=== PATIENT | male | born 1985 | race Caucasian/White ===

== ENCOUNTER 2021-02-24 04:29 | Emergency (ER) | payer MEDICAID ==
[~2021-02-24] VITALS: Ht 170.2 cm; Wt 69.0 kg
[2021-02-24] MEDS ORDERED: KETOROLAC 60MG/2ML VIAL IM ONE (05:00)
[2021-02-24 06:44] LABS: BASOPHILS % 0.8 % (0.0-2.0); EOSINOPHILS % 1.2 % (0.0-5.0); HEMATOCRIT. 43.1 % (42.0-52.0); HEMOGLOBIN. 14.5 g/dL (14.0-18.0); LYMPHOCYTES % 34.4 % (20.0-50.0); MEAN CORPUSCULAR HEMOGLOBIN 31.9 pg (28.0-32.0); MEAN CORPUSCULAR VOLUME 94.8 fL (80.0-94.0); MEAN PLATELET VOLUME 7.7 fl (7.4-10.4); NEUTROPHILS % 49.6 % (40.0-76.0); PLATELET 260 x1000/uL (130-400); RED BLOOD CELL COUNT 4.55 mill/uL (4.7-6.1); RED CELL DISTRIBUTION WIDTH 13.3 % (11.6-14.6)
[2021-02-24 06:47] LABS: CHLORIDE 106 mEq/L (98-107)
[2021-02-24 09:14] VITALS: BP 110/78
== END 2021-02-24 09:15 | disposition home or self-care (01) ==
LOC: ER 04:29
DX: R51.9 Headache, unspecified (principal); E78.00 Pure hypercholesterolemia, unspecified; Z98.890 Other specified postprocedural states
CPT/HCPCS: 36415; 70450; 80053; 85025; 96372; 99284; J1885

== ENCOUNTER 2025-03-07 03:04 | Emergency (ER) | payer MEDICAID ==
[~2025-03-07] VITALS: Ht 162.6 cm; Wt 60.0 kg
[2025-03-07 03:07] VITALS: BP 158/90; PULSE 98; RESP 16; TEMP 36.4; O2SAT 100
== END 2025-03-07 06:20 | disposition left against medical advice (07) ==
LOC: ER 03:04
DX: F41.9 Anxiety disorder, unspecified (principal); Z53.21 Procedure and treatment not carried out due to patient leaving prior to being seen by health care provider

== ENCOUNTER 2025-05-19 02:01 | Emergency (ER) | payer MEDICAID ==
[~2025-05-19] VITALS: Ht 172.7 cm; Wt 79.0 kg
[2025-05-19 02:02] VITALS: O2SAT 100
[2025-05-19 02:45] VITALS: TEMP 37.3
[2025-05-19] MEDS: ACETAMINOPHEN 325MG TABLET PO ONE (03:22)
[2025-05-19] MEDS ORDERED: ACET-2708 MT (05:05)
[2025-05-19 05:17] VITALS: BP 113/75; PULSE 82; RESP 16; O2SAT 97
== END 2025-05-19 05:23 | disposition home or self-care (01) ==
LOC: ER 02:01
DX: G44.209 Tension-type headache, unspecified, not intractable (principal); F41.9 Anxiety disorder, unspecified; E78.00 Pure hypercholesterolemia, unspecified
CPT/HCPCS: 99284; A4606